=== PATIENT | female | born 1970 | race Caucasian/White ===

== ENCOUNTER 2018-02-25 11:02 | Inpatient (IN) | payer OTHER ==
--- NOTE | 2018-02-25 11:38 | EDPHY ---
General - History Smoking Status: Never smoked Time Seen by Provider: 02/25/18 11:32 Narrative: Procedure: Lumbar puncture. Indication: Headache, malaise, fever. After verbal informed consent from patient explaining the risks including infection, bleeding, and neurologic damage, a lumbar puncture was performed after the patient was prepped and draped in the usual fashion. The back was anesthetized with 1% lidocaine. Approximately 4 cc of clear fluid was obtained. Opening pressure was not obtained. There were no complications. The procedure was performed by myself. (Maria Faustin) CHIEF COMPLAINT: Headache, nausea, chills, body aches HISTORY OF PRESENT ILLNESS: Patient presents per private vehicle with complaints of headache, nausea, chills , body aches. symptoms started abruptly last night. Constant duration. Mild last night, more moderate to severe today. Headache is generalized. She feels uncontrollable shakes and chills at times but not febrile. She does have some neck pain but not stiffness. Does have some body aches and generalized malaise. No rash. No urinary complaints but no abdominal pain. No chest pain. Minimal cough. 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 They recommend that she come here further evaluation. No other associated complaints or modifying factors. REVIEW OF SYSTEMS: 10 systems were reviewed and negative with the exception of the elements mentioned in the history of present illness. PCP: Dr. Zenon Coffey SPECIALISTS: ENT PAST MEDICAL HISTORY: Sinusitis, migraines SOCIAL HISTORY: Nonsmoker. FAMILY HISTORY: Noncontributory EXAMINATION: Vitals: Triage VS reviewed General Appearance: Alert, no distress, tremulous. Ill appearing. Conversing in full sentences Head: normocephalic, atraumatic Eyes: Pupils equal and round, no conjunctival pallor or injection ENT, Mouth: Mucous membranes moist Neck: Midline trachea. Normal inspection. Supple with mild paraspinous tenderness. No nuchal rigidity. Respiratory: Lungs are clear to auscultation Cardiovascular: Regular rate and rhythm. No murmur Gastrointestinal: Abdomen is soft and nontender Back: non-tender, no bony abnormalities Neurological: A&O, nonfocal, normal gait Skin: Warm and dry, no rash Extremities: Nontender, no pedal edema Psychiatric: Mood and affect normal DIFFERENTIAL DIAGNOSES: Including but not limited to viral meningitis, bacterial meningitis, influenza, viral syndrome, sinusitis, migraine headache, dehydration MDM: 11:30 a.m. Headache, malaise, myalgias with normal vital signs other than very mild fever. She received anti-inflammatories just prior to arrival in flu test is pending. Laboratory studies pending. 12:40 p.m. Patient evaluated. Flu test negative. Laboratory studies revealed leukocytosis. She remains afebrile during my examination. I have ordered CT scan of the head due to her recent extensive sinusitis. I will discuss with attending physician. 1:[address] scan of the head is pending. She has received further medication including IV fluid, Reglan, Benadryl. I discussed case with Dr. Faustin. He will evaluate the patient as well. 1:50 p.m. Notified by radiologist Dr. Coburn. CT scan of the head was difficult to obtain due to motion artifact. She says that the initial 2 scans of the 3 performed seems to artifact and this improved. By the 3rd scan, she feels confident that the artifact has decreased and there is no evidence of subarachnoid hemorrhage. There is extensive chronic and subacute left-sided sinusitis as documented. I have notified Dr. Faustin. He will proceed with evaluation the patient and likely lumbar puncture. 4:00 p.m. Lumbar puncture is being performed by Dr. Faustin. 5:20 p.m. Lumbar puncture performed without difficulty. Fluid was clear in appearance. Please see his note for details. The fluid analysis is pending. I have re- evaluated the patient she continues to feel ill. She is ill-appearing at this time. She is also intermittently tachycardic. I do not feel she is ready for discharge home at this time. She agrees. I have ordered additional IV fluid. I discussed case with the hospitalist. She is admitted stable condition with CSF analysis pending. SUPERVISION: Patient was evaluated and examined in conjunction with my secondary supervising physician as documented. We have both examined the patient. CONSULTATION: None (Maximo Wade) - Objective Vital Signs: Initial Vital Signs Temperature (C) 100.4 F 02/25/18 11:08 Heart Rate 90 02/25/18 11:08 Respiratory Rate 18 02/25/18 11:08 Blood Pressure 116/74 02/25/18 11:08 O2 Sat (%) 96 02/25/18 11:08 O2 Delivery Mode Room Air Allergies/Adverse Reactions: Sulfa (Sulfonamide Antibiotics) Allergy (Intermediate, Verified 02/26/18 15:13) Hives Home Medications: Medication Instructions Recorded Amphet Asp and D/Amphet [Adderall 20 mg PO DAILY PRN 02/25/18 20 mg (*)] Laboratory Results: Laboratory Results 02/26/18 04:20 02/26/18 04:20 Microbiology Results: MICROBIOLOGY 02/26/18 15:01 Sinus - Swab Gram Stain - Final 02/26/18 15:01 Sinus - Swab Nasopharyngeal Culture - Preliminary 02/25/18 16:00 Cerebral Spinal Fluid Gram Stain - Final 02/25/18 16:00 Cerebral Spinal Fluid CSF Culture - Preliminary 02/25/18 22:58 Blood Blood Culture - Preliminary 02/25/18 22:58 Blood Blood Culture - Preliminary Medications Given: Acetaminophen (Tylenol) 650 mg PO Q4HRS PRN PRN Reason: Pain, Mild/Fever, Can Take PO Stop: 08/24/18 18:04 Last Admin: 02/27/18 16:43 Dose: 650 mg Hydrocodone Bitart/Acetaminophen (Seco 5/325) 1 - 2 tab PO Q4HRS PRN PRN Reason: Pain, Moderate Able to Take PO Stop: 03/07/18 18:04 Last Admin: 02/27/18 07:51 Dose: 1 tab Diazepam (Valium) 5 mg IVP Q6HRS PRN PRN Reason: Anxiety, Unable to Take PO Stop: 08/26/18 09:35 Last Admin: 02/27/18 10:02 Dose: 5 mg Sodium Chloride (Ns) 1,000 mls @ 100 mls/hr IV CONT MACY Stop: 08/24/18 18:14 Last Admin: 02/26/18 22:01 Dose: 1,000 mls Metronidazole/Sodium Chloride (Flagyl 500 Mg (Premix)) 100 mls @ 100 mls/hr IV Q8HRS MACY PRN Reason: Protocol Stop: 03/29/18 13:59 Last Admin: 02/27/18 15:36 Dose: 100 mls Ketorolac Tromethamine (Toradol) 15 mg IVP Q6HRS PRN PRN Reason: headache Stop: 03/03/18 21:59 Last Admin: 02/27/18 13:17 Dose: 15 mg Ondansetron HCl (Zofran) 4 mg IVP Q4HRS PRN PRN Reason: Nausea/Vomiting, Can't Take PO Stop: 08/24/18 18:04 Last Admin: 02/27/18 08:03 Dose: 4 mg Ondansetron HCl (Zofran Odt) 4 mg PO Q4HRS PRN PRN Reason: Nausea/Vomiting, Use 1st Stop: 08/24/18 18:04 Last Admin: 02/26/18 03:41 Dose: 4 mg Oxycodone HCl (Oxycodone Ir) 5 - 10 mg PO Q3HRS PRN PRN Reason: Pain, Severe Able to Take PO Stop: 03/07/18 18:04 Last Admin: 02/27/18 16:42 Dose: 10 mg Promethazine HCl (Phenergan) 6.25 - 12.5 mg IVP Q6HRS PRN PRN Reason: Nausea/Vomiting, Use 2nd Stop: 08/24/18 18:04 Last Admin: 02/27/18 16:42 Dose: 6.25 mg Discontinued Medications Diphenhydramine HCl (Benadryl Injection) 25 mg IVP EDNOW ONE Stop: 02/25/18 12:53 Last Admin: 02/25/18 13:00 Dose: 25 mg Fentanyl (Sublimaze) 25 mcg IVP EDNOW ONE Stop: 02/25/18 16:09 Last Admin: 02/25/18 16:09 Dose: 25 mcg Sodium Chloride (Ns) 1,000 mls @ 0 mls/hr IV EDNOW ONE; Wide Open PRN Reason: Protocol Stop: 02/25/18 12:19 Last Admin: 02/25/18 12:20 Dose: 1,000 mls Sodium Chloride (Ns) 1,000 mls @ 0 mls/hr IV ONCE ONE; Wide Open PRN Reason: Protocol Stop: 02/25/18 12:53 Last Admin: 02/25/18 13:02 Dose: 1,000 mls Sodium Chloride (Ns) 1,000 mls @ 0 mls/hr IV EDNOW ONE; Wide Open PRN Reason: Protocol Stop: 02/25/18 17:23 Last Admin: 02/25/18 17:36 Dose: 1,000 mls Ampicillin Sodium/Sulbactam (Sodium 3 gm/ Sodium Chloride) 100 mls @ 200 mls/ hr IV Q6H MACY PRN Reason: Protocol Stop: 03/28/18 15:29 Last Admin: 02/27/18 09:54 Dose: Not Given Ceftriaxone Sodium 2 gm/ (Sodium Chloride) 50 mls @ 100 mls/hr IV Q12H MACY PRN Reason: Protocol Stop: 03/29/18 09:59 Last Admin: 02/27/18 10:14 Dose: 50 mls Ketorolac Tromethamine (Toradol) 15 mg IVP ONCE ONE Stop: 02/26/18 16:34 Last Admin: 02/26/18 16:41 Dose: 15 mg Metoclopramide HCl (Reglan Injection) 10 mg IVP EDNOW ONE Stop: 02/25/18 12:53 Last Admin: 02/25/18 13:00 Dose: 10 mg Promethazine HCl (Phenergan) 25 mg IVP ONCE ONE Stop: 02/27/18 09:36 Last Admin: 02/27/18 09:42 Dose: 25 mg Departure - Departure Disposition: [facility] Acute Clinical Impression: Myalgia, Tachycardia, Left maxillary sinusitis Acute headache Qualifiers: Headache type: unspecified Intractability: not intractable Qualified Code(s): R51 - Headache Condition: Good
[2018-02-25] MEDS ORDERED: NS 1,000 ML IV ONE ×3 (12:18→17:22)
[2018-02-25 12:29] LABS: PLATELET COUNT 256 10^3/uL (150-400)
[2018-02-25] MEDS ORDERED: METOCLOPRAMIDE 10 MG/2 ML VIAL IVP ONE (12:52)
[2018-02-25] MEDS ORDERED: fentaNYL 100 MCG/2 ML INJ ONE (15:04)
[2018-02-25] MEDS ORDERED: fentaNYL 100 MCG/2 ML INJ IVP ONE (16:08)
[2018-02-25] MEDS ORDERED: HYDROmorphONE/DILAUDID 1 MG/ML INJ IVP PRN (18:05)
[2018-02-25] MEDS ORDERED: LORazepam 2 MG/ML INJ IVP PRN (18:05)
[2018-02-25] MEDS ORDERED: ALBUTEROL 3 ML DEYVIAL IH PRN (18:05)
[2018-02-25] MEDS: ONDANSETRON DISINTEGRATING 4 MG TAB PO PRN (18:23)
[2018-02-25] MEDS: ACETAMINOPHEN 325 MG TAB PO PRN (18:23)
[2018-02-25] MEDS: NS 1,000 ML IV SCH (21:35)
--- NOTE | 2018-02-25 22:21 | PDGENHP ---
History and Physical - Chief Complaint body aches/chills - History of Present Illness 47 yo F with no significant PMH presenting with c/o ROBLES, body aches and chills for the last 24 hours. 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 She has not had nausea or other GI issues, she has not had cough or increased sputum production. She notes she has had issues with her sinuses and worries that this is becoming a chronic issue and that maybe her chronic sinus infection is now eating into her facial bones. History Information - Allergies/Home Medication List Allergies/Adverse Reactions: Sulfa (Sulfonamide Antibiotics) Allergy (Verified 02/25/18 11:08) Home Medications: Amphet Asp and D/Amphet [Adderall 20 mg (*)] 20 mg PO DAILY PRN 02/25/18 [Last Taken 02/24/18] I have personally reviewed and updated: family history, medical history, social history, surgical history - Past Medical History Additional medical history: ADHD. chronic sinus infection. ear drum rupture - Surgical History Reports: no pertinent surgical hx - Family History Positive for: non-pertinent - Social History Smoking Status: Never smoked Alcohol Use: Rarely Drug Use: None Review of Systems Review of Systems: ROS: 10pt was reviewed & negative except for what was stated in HPI & below Physical Exam Physical Exam: Temp Pulse Resp BP Pulse Ox 36.9 C 96 14 107/65 94 02/25/18 19:22 02/25/18 19:22 02/25/18 19:22 02/25/18 19:22 02/25/18 19:22 Constitutional: no apparent distress, appears nourished Eyes: PERRL, anicteric sclera Ears, Nose, Mouth, Throat: moist mucous membranes, hearing normal, ears appear normal Cardiovascular: regular rate and rhythym, no murmur, rub, or gallop, No edema Respiratory: no respiratory distress, no rales or rhonchi, clear to auscultation Gastrointestinal: normoactive bowel sounds, soft, non-tender abdomen, no palpable masses Genitourinary: no bladder tenderness Skin: warm, normal color Musculoskeletal: full muscle strength, no muscle tenderness Neurologic: AAOx3 Psychiatric: interacting appropriately, not anxious, not encephalopathic Lab Data & Imaging Review 02/25/18 12:15 02/25/18 12:15 WBC 16.55 10^3/uL (3.80-9.50) H 02/25/18 12:15 RBC 4.98 10^6/uL (4.18-5.33) 02/25/18 12:15 Hgb 14.4 g/dL (12.6-16.3) 02/25/18 12:15 Hct 41.5 % (38.0-47.0) 02/25/18 12:15 MCV 83.3 fL (81.5-99.8) 02/25/18 12:15 MCH 28.9 pg (27.9-34.1) 02/25/18 12:15 MCHC 34.7 g/dL (32.4-36.7) 02/25/18 12:15 RDW 12.8 % (11.5-15.2) 02/25/18 12:15 Plt Count 256 10^3/uL (150-400) 02/25/18 12:15 MPV 9.5 fL (8.7-11.7) 02/25/18 12:15 Neut % (Auto) 88.1 % (39.3-74.2) H 02/25/18 12:15 Lymph % (Auto) 6.6 % (15.0-45.0) L 02/25/18 12:15 Taylor % (Auto) 4.7 % (4.5-13.0) 02/25/18 12:15 Eos % (Auto) 0.0 % (0.6-7.6) L 02/25/18 12:15 Baso % (Auto) 0.2 % (0.3-1.7) L 02/25/18 12:15 Nucleat RBC Rel Count 0.0 % (0.0-0.2) 02/25/18 12:15 Absolute Neuts (auto) 14.59 10^3/uL (1.70-6.50) H 02/25/18 12:15 Absolute Lymphs (auto) 1.09 10^3/uL (1.00-3.00) 02/25/18 12:15 Absolute Monos (auto) 0.77 10^3/uL (0.30-0.80) 02/25/18 12:15 Absolute Eos (auto) 0.00 10^3/uL (0.03-0.40) L 02/25/18 12:15 Absolute Basos (auto) 0.04 10^3/uL (0.02-0.10) 02/25/18 12:15 Absolute Nucleated RBC 0.00 10^3/uL (0-0.01) 02/25/18 12:15 Immature Gran % 0.4 % (0.0-1.1) 02/25/18 12:15 Immature Gran # 0.06 10^3/uL (0.00-0.10) 02/25/18 12:15 Sodium 137 mEq/L (135-145) 02/25/18 12:15 Potassium 4.1 mEq/L (3.3-5.0) 02/25/18 12:15 Chloride 102 mEq/L (97-110) 02/25/18 12:15 Carbon Dioxide 24 mEq/l (22-31) 02/25/18 12:15 Anion Gap 11 mEq/L (6-14) 02/25/18 12:15 BUN 12 mg/dL (7-23) 02/25/18 12:15 Creatinine 0.8 mg/dL (0.6-1.0) 02/25/18 12:15 Estimated GFR > 60 02/25/18 12:15 Glucose 97 mg/dL (70-100) 02/25/18 12:15 Calcium 9.8 mg/dL (8.5-10.4) 02/25/18 12:15 Total Bilirubin 0.7 mg/dL (0.1-1.4) 02/25/18 12:15 Conjugated Bilirubin 0.2 mg/dL (0.0-0.5) 02/25/18 12:15 Unconjugated Bilirubin 0.5 mg/dL (0.0-1.1) 02/25/18 12:15 AST 20 IU/L (14-46) 02/25/18 12:15 ALT 33 IU/L (9-52) 02/25/18 12:15 Alkaline Phosphatase 61 IU/L (38-126) 02/25/18 12:15 Total Protein 7.8 g/dL (6.3-8.2) 02/25/18 12:15 Albumin 4.6 g/dL (3.5-5.0) 02/25/18 12:15 Lipase 70 IU/L (23-300) 02/25/18 12:15 CSF Tube Number 1 02/25/18 16:50 CSF Appearance CLEAR (CLEAR) 02/25/18 16:50 CSF Color COLORLESS (COLORLESS) 02/25/18 16:50 CSF Supernatant COLORLESS (COLORLESS) 02/25/18 16:50 CSF WBC 0 /mm3 (0-5) 02/25/18 16:50 CSF RBC 4 /mm3 (0-0) H 02/25/18 16:50 CSF Glucose 53 mg/dL (50-75) 02/25/18 16:00 CSF Total Protein 34 mg/dL (12-60) 02/25/18 16:00 Nasal Influenza A PCR NEGATIVE FOR FLU A (NEGATIVE) 02/25/18 11:30 Nasal Influenza B PCR NEGATIVE FOR FLU B (NEGATIVE) 02/25/18 11:30 Visualized and Interpreted imaging results: Yes Interpretation: head CT: near total opacification of left maxillary sinus Assessment & Plan Assessment: Acute headache (Acute) Myalgia (Acute) Tachycardia (Acute) 47 yo F with chronic sinus issues but otherwise no significant PMH admitted with sepsis # sepsis: patient meeting sirs criteria with fever, tachycardia and leukocytosis with a presumed viral source versus related to sinus opacification noted on head CT. Patient HD stable. LP results wnl. Blood cultures and csf cultures ordered, resp pcr ordered, UA ordered. No abx given at this time with presumably viral etiology. # chronic sinus congestion: patient notes that she has undergone multiple rounds of abx for her sinus issues, on head CT she does continue to have persistent opacification of her maxillary sinus. Unclear if this is related to above and at this time will hold off on abx, will ask ID to evaluate. # ADHD: will hold adderall for now # observation status Patient new to my care. Old records reviewed and summarized as above. Care plan reviewed with ER doctor as above.
[2018-02-26] MEDS: oxyCODONE IR 5 MG TAB PO PRN ×4 (03:41→18:04)
[2018-02-26] MEDS: ONDANSETRON DISINTEGRATING 4 MG TAB PO PRN (03:41)
[2018-02-26] MEDS: ACETAMINOPHEN 325 MG TAB PO PRN ×3 (04:20→14:31)
[2018-02-26 06:02] LABS: PLATELET COUNT 207 10^3/uL (150-400)
--- NOTE | 2018-02-26 09:02 | HOSPPROG ---
Hospitalist Progress Note Assessment/Plan: 47 yo F with chronic sinus issues but otherwise no significant PMH admitted with sepsis. First encounter, chart reviewed. # sepsis -sirs criteria -Blood cx pending -resp PCR is netative -LP stable, gram stain wnl, cx pending #chronic sinus infections -suspect this is viral -CT of head shows persistent opacification of maxillary sinus -she recently was treated at for a sinus infection and was on Unasyn in January -she also did an OP w ENT -will ask ENT to see, reviewed her care with them and they are recommending IV antibiotics -ID to see *irregular density on L upper lobe -reviewed findings w Dr Castañdea -she doesn't have a previous chest x ray -get a CT of chest *ADHD -Adderall *Plan: get CT of her chest, ENT to see, will hold off on IV abx until ID weighs in. Subjective: Petra said her left nares has chronic pressure and pain, impacting her ability w school due to the discomfort. Objective: Vital Signs Temp Pulse Resp BP Pulse Ox 36.9 C 77 16 112/63 92 02/26/18 07:39 02/26/18 07:39 02/26/18 07:39 02/26/18 07:39 02/26/18 07:39 Laboratory Results 02/26/18 04:20 02/26/18 04:20 02/25/18 02/26/18 02/27/18 05:59 05:59 05:59 Intake Total 3420 Output Total 800 Balance 2620 - Physical Exam Constitutional: uncomfortable Eyes: PERRL Ears, Nose, Mouth, Throat: other (pressure and discomfort when palpating her left sinus area) Cardiovascular: regular rate and rhythym Respiratory: no respiratory distress Skin: warm, normal color Musculoskeletal: full muscle strength Neurologic: AAOx3 Psychiatric: interacting appropriately ICD10 Worksheet Patient Problems: Problems Problem Status Onset Acute headache Acute Myalgia Acute Tachycardia Acute
--- NOTE | 2018-02-26 15:06 | ASMTCMCOM ---
CM Note CM Note Notes: Spoke w/HOME CARE ASSOCIATE, pt admitted for headache. She is a student and is otherwise independent, will dc home when medically stable. CM available for any changes. DC Plan: Independent Date Signed: 02/26/2018 03:05 PM Electronically Signed By:Mercedes Wilson RN
[2018-02-26] MEDS ORDERED: AMPICILLIN/SULBACTAM 3 GM in NS 100 ML IV SCH ×2 (15:30→18:00)
[2018-02-26] MEDS: AMPICILLIN/SULBACTAM 3 GM in NS 100 ML IV SCH ×2 (15:42→20:32)
[2018-02-26] MEDS: NS 1,000 ML IV SCH ×2 (15:42→22:01)
--- NOTE | 2018-02-26 16:18 | GCON ---
INFECTIOUS DISEASE CONSULTATION. DATE OF CONSULTATION: 02/26/2018 Provider requesting consultation is Mecca Gillespie. REASON FOR CONSULTATION: Unresolving sinusitis. HISTORY OF PRESENT ILLNESS: A 47-year-old woman without significant medical history except for recen t issues relating to recurrent sinusitis. Patient's problems date back to about 6 weeks ago when she developed a left eardrum rupture followed by a hospitalization in January related to left-sided sinu sitis related to retained root from a root canal. This was subsequently removed. The patient was ho spitalized on IV Unasyn and discharged on Augmentin. In addition to this, she has been on up to 7 di fferent rounds of antibiotics but she can't remember all the names. She had been off antibiotics for a week or 2 and developed a headache, body aches and chills over the last 24 hours, myalgias and her primary care told her that she must go see the emergency room because of "a meningitis outbreak." I n the emergency room, patient was evaluated and underwent a lumbar puncture, which was normal. She a lso underwent a head CT, which was personally reviewed by me, which showed right-sided maxillary sinu sitis. 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 Her main complaint is ongoing achiness. She states that her l ast sinus culture grew Propionibacterium acnes. The patient also underwent a chest CT which was nega tive for any abnormalities. PAST MEDICAL HISTORY: Negative. PAST SURGICAL HISTORY: Root canals and extraction of root as per HPI. She also had a left toe surge ry remotely. ALLERGIES: Sulfa causes hives and facial swelling, this happened in 2011. FAMILY HISTORY: Reviewed and noncontributory. SOCIAL HISTORY: Rare alcohol. No smoking. She is a nursing admin. She is . She lives in [place]. REVIEW OF SYSTEMS: A complete 10-point review of systems was performed and is negative except as men tioned in the HPI. PHYSICAL EXAMINATION: VITAL SIGNS: T-max is 38, T current 36.7, BP 101/60, HR 82, RR 16, saturation 94% on room air. GENERAL: This is a nontoxic appearing woman in no acute distress, who is conversatio nal. She has mild distress due to headache. HEENT: Her pupils are reactive bilaterally. Extraocul ar muscles are intact. Her right eye was mildly more prominent than her left eye. Her cranial nerve s were grossly intact. Her dentition was good. No obvious dental caries. Patient had tenderness ove r left maxillary sinus. NECK: Supple. No lymphadenopathy. CARDIOVASCULAR: Regular rate, no murmu rs. CHEST: Clear to auscultation bilaterally. ABDOMEN: Soft, nontender. EXTREMITIES: No clubbin g, cyanosis, or edema. SKIN: No rashes. No peripheral stigmata of endocarditis. NEUROLOGIC: She wa s moving all 4 extremities equally. LABORATORY: White count initially 16.5, today 8.5, without antibiotic intervention, hematocrit 35, p latelets of 207, 73% neutrophils. Creatinine 0.7. CSF tube 4 had 0 WBCs, 0 RBCs, 53 glucose, 34 pro tein. Respiratory PCR was performed and is negative. Blood cultures were collected and are pending. ASSESSMENT AND PLAN: This is a 47-year-old woman with persistent left maxillary sinusitis, with mult iple rounds of antibiotics. 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 The patient needs to likely improve drainage of her sinus. Could also con interface designer deeper bony involvement, but at this time, would re-evaluate with cultures and potentially long er antibiotic therapy. Would empirically initiate IV Unasyn and follow up on cultures and direct ant ibiotic therapy. Would also obtain records from outside hospital. Thank you for this consultation. Care was coordinated with hospitalist and ENT. /[id number]/MODL
[2018-02-26] MEDS: ONDANSETRON 4 MG/2 ML VIAL IVP PRN (16:25)
[2018-02-26] MEDS ORDERED: KETOROLAC 15 MG/1 ML SDV IVP ONE (16:33)
--- NOTE | 2018-02-26 19:55 | GCON ---
ENT CONSULTATION DATE OF CONSULTATION: 02/26/2018 REASON FOR CONSULTATION: Sinusitis. HISTORY OF PRESENT ILLNESS: This 47-year-old female presented to the emergency department on 02/25 complaining of headache, nausea, chills, body aches. It started had started abruptly the previous night. She describes having a chronic sinus headache since the beginning of November. The pain is localized to her left cheek. She had been prescribed numerous rounds of antibiotics throughout November and December. She saw an floor layer apprentice in December who performed apicoectomy on an upper left tooth. One week later she again was having headaches, facial pressure and pain. She was then admitted at [facility] where they performed a nasal endoscopy with culture that grew Cutibacterium acnes and she was placed on Unasyn IV for 24 hours. In followup with an ENT provider, they had informed her her infection had cleared, however, her symptoms returned and prompted her visit to the ED yesterday. REVIEW OF SYSTEMS: 10 systems reviewed, negative with the exception of the above-mentioned History of Present Illness. PAST MEDICAL HISTORY: Notable for migraines. SOCIAL HISTORY: Nonsmoker. FAMILY HISTORY: Noncontributory. IMAGING: Head CT without contrast performed on 02/25/2018. Images were reviewed personally by myself and with Dr. De Guzman. There is significant sinus disease in the left maxillary sinus without definitive invasion into the inferior orbital floor. No retroorbital stranding or inflammation. PHYSICAL EXAMINATION: VITAL SIGNS: Blood pressure 101/60, heart rate 82, temperature 36.7 degrees Celsius, oxygen 94% on room air. GENERAL APPEARANCE: She was examined at the bedside. She is alert, slightly photophobic but in no distress. HEAD: Normocephalic, atraumatic. EYES: Pupils equal and round. EOMs intact. MOUTH: Mucous membranes are moist. Tonsils 2+ without exudate. NECK: Supple. RESPIRATORY: Patient is breathing well. SKIN: Warm and dry, no rashes seen. PROCEDURE: Flexible fiberoptic nasal endoscopy was performed at the bedside. The scope was passed in the side of the nose. There was a stream of purulent drainage emanating from the left osteomeatal complex. The nasopharynx was without masses. No polyps were noted. Culture was taken of the left maxillary sinus drainage. IMPRESSION: A 47-year-old female suffering from a left maxillary sinusitis. It may be odontogenic in origin. I have taken a culture of the purulent drainage from the left maxillary sinus and this will be sent to the lab. Antibiotics will be adjusted. Patient is also being followed by Infectious Disease and we will defer to Infectious Disease for their recommendations for antibiotics. We will plan to see the patient Outpatient to discuss further management. The case and plan were reviewed with Dr. De Guzman today. /[id number]/MODL MTDD
[2018-02-26] MEDS: HYDROCODONE/APAP 5/325 TAB PO PRN (20:27)
[2018-02-26] MEDS: KETOROLAC 15 MG/1 ML SDV IVP PRN (22:27)
[2018-02-27] MEDS: HYDROCODONE/APAP 5/325 TAB PO PRN ×2 (00:27→07:51)
[2018-02-27] MEDS: KETOROLAC 15 MG/1 ML SDV IVP PRN ×3 (04:33→21:23)
[2018-02-27] MEDS: AMPICILLIN/SULBACTAM 3 GM in NS 100 ML IV SCH ×2 (04:34→09:54)
[2018-02-27] MEDS: ONDANSETRON 4 MG/2 ML VIAL IVP PRN ×2 (08:03→21:23)
[2018-02-27] MEDS ORDERED: PROMETHAZINE HCL 25 MG/ML INJ IVP ONE (09:35)
[2018-02-27] MEDS ORDERED: DIAZEPAM 5 MG/ML 1 ML SYR IVP PRN (09:36)
--- NOTE | 2018-02-27 09:40 | PCMIDPN ---
Assessment/Plan: # Chronic sinusitis w severe ROBLES, diffuse a bit more prominent on L: concern for septic sinus venous thrombosis. LP normal --MRI brain with and w/o contrast and MR venogram --change antibiotics to regimen that will penetrate CSF: high dose ceftriaxone + metronidazole --trying to get records CT scan report from 01/26/18 acute on chronic sinusitis involving L maxillary sinus arising from the L first molar tooth which demonstrated a region of cortical breach as well and periapical lucency The L orbital floor appears mildly eroded and is bowed inferiorly w mild inflammatory changes ; L inferior rectus muscle mildly enlarged compared to R; mild inflammatory changes in the inferior L extracoronal fat, concerning for intra orbital extension of of infection meds Unasyn 3gm IV q6h #1 Microbiology 02/26/18 15:01 Sinus swab: 4+ PMNs no org; cx pending 02/25/18 11:30 Respiratory Panel (PCR) - No Organism Detected 02/25/18 22:58 Blood Cx (2) NGTD 02/25/18 16:00 Cerebral Spinal Fluid Cx: NGTD Subjective: severe ROBLES light sensitivity feels like vision is abnormal Objective: Vital Signs Temp Pulse Resp BP Pulse Ox 36.7 C 73 12 114/64 91 L 02/27/18 07:28 02/27/18 07:28 02/27/18 07:28 02/27/18 07:28 02/27/18 07:28 Microbiology 02/26/18 15:01 Gram Stain - Final Sinus - Swab Laboratory Results 02/26/18 04:20 02/26/18 04:20 02/26/18 02/27/18 02/28/18 05:59 05:59 05:59 Intake Total 3420 500 Output Total 800 600 Balance 2620 -100 - Physical Exam General Appearance: alert, apparent distress EENT: normal ENT inspection, No thrush Respiratory: lungs clear, No accessory muscle use Cardiac/Chest: regular rate, rhythm Extremities: No pedal edema Abdomen: non-tender, soft Skin: diaphoresis, No rash Neuro/Psych: alert, normal mood/affect, oriented x 3, No abnormal CN - Time Spent With Patient Time Spent with Patient: greater than 35 minutes Time Spent with Patient: Greater than 35 minutes spent on this patients care, greater than 50% of time spent counseling, educating, and coordinating care regarding the above mentioned plan. ICD10 Worksheet Patient Problems: Problems Problem Status Onset Acute headache Acute Myalgia Acute Tachycardia Acute
[2018-02-27] MEDS ORDERED: GADOBUTROL 10 ML VIAL IVP ONE ×2 (12:18→12:38)
--- NOTE | 2018-02-27 12:26 | PDMN ---
Medical Necessity Medical necessity: Change to inpt as of 02/26/18 @ [id number]. Pt meets inpt criteria per MD order and Systemic or Infectious Condition GRG. 47 y/o w/recent chronic sinus issues having undergone multiple rounds of abx presented w/severe headaches, body aches, and chills, admitted w/sepsis and acute maxillary sinusitis, head CT showed persistent opacification of maxillary sinus. ENT and ID consults, IV ABX's adjusted to regimen to penetrate CSF, IV Toradol and PO meds for pain management. Est LOS>2MN for ongoing eval/management of above.
[2018-02-27] MEDS: oxyCODONE IR 5 MG TAB PO PRN ×2 (13:18→16:42)
--- NOTE | 2018-02-27 14:15 | ASMTCMCOM ---
CM Note CM Note Notes: Spoke w/RN, pt with headache d/t sever sinusitis. On IV abx, no therapies ordered, anticipate she will dc home w/support of when medically stable. CM available for any changes. DC Plan: Independent Date Signed: 02/27/2018 02:11 PM Electronically Signed By:Mercedes Wilson RN
--- NOTE | 2018-02-27 14:21 | HOSPPROG ---
Hospitalist Progress Note Assessment/Plan: 47y female with c/o headache. First encounter, chart reviewed. D/W Dr Silver at bedside. # sepsis -sirs criteria -Blood cx NGTD -resp PCR is negative -LP stable, gram stain wnl, cx ngtd #chronic sinus infections -CT of head shows persistent opacification of maxillary sinus -she recently was treated at for a sinus infection and was on Unasyn in January -she also did an OP w ENT -ID seeing -MRI brain and MR venogram *irregular density on L upper lobe -she doesn't have a previous chest x ray -CT of chest shows irregularity *ADHD -Adderall *Plan: -change antibiotics to regimen that will penetrate CSF: high dose ceftriaxone + metronidazole -MR -MRI Subjective: Severe headache. Tearful. Some nausea. Objective: Vital Signs Temp Pulse Resp BP Pulse Ox 37.1 C 75 12 113/63 90 L 02/27/18 12:00 02/27/18 12:00 02/27/18 12:00 02/27/18 12:00 02/27/18 12:00 02/26/18 02/27/18 02/28/18 05:59 05:59 05:59 Intake Total 500 Output Total 600 Balance -100 - Physical Exam Constitutional: appears nourished, chronically ill appearing, uncomfortable Eyes: PERRL, anicteric sclera, EOMI Ears, Nose, Mouth, Throat: moist mucous membranes, hearing normal, ears appear normal Cardiovascular: regular rate and rhythym, No JVD, No edema Respiratory: no respiratory distress, no rales or rhonchi, reduced air movement Gastrointestinal: normoactive bowel sounds, No tenderness, No ascites Skin: warm, normal color, No mottled Musculoskeletal: normal joint ROM, no joint effusions, generalized weakness Neurologic: AAOx3 Psychiatric: not anxious, thought process linear, encephalopathic ICD10 Worksheet Patient Problems: Problems Problem Status Onset Acute headache Acute Myalgia Acute Tachycardia Acute Left maxillary sinusitis Acute
[2018-02-27] MEDS: PROMETHAZINE HCL 25 MG/ML INJ IVP PRN ×2 (16:42→17:14)
[2018-02-27] MEDS: ACETAMINOPHEN 325 MG TAB PO PRN (16:43)
[2018-02-28] MEDS: oxyCODONE IR 5 MG TAB PO PRN ×3 (01:14→21:32)
[2018-02-28] MEDS: ACETAMINOPHEN 325 MG TAB PO PRN ×5 (01:23→20:23)
[2018-02-28] MEDS ORDERED: BISACODYL 10 MG SUPP PR PRN (02:40)
[2018-02-28] MEDS ORDERED: LACTULOSE 20 GM/30 ML UDCUP PO PRN (02:40)
[2018-02-28] MEDS ORDERED: POLYETHYLENE GLYCOL 3350 17 GM PKT PO PRN (02:40)
[2018-02-28] MEDS ORDERED: MAGNESIUM HYDROXIDE 30 ML UDCUP PO PRN (02:40)
[2018-02-28] MEDS: KETOROLAC 15 MG/1 ML SDV IVP PRN ×2 (03:28→09:30)
[2018-02-28] MEDS: SENNOSIDES/DOCUSATE SODIUM TAB PO SCH ×2 (07:14→21:31)
--- NOTE | 2018-02-28 07:49 | HOSPPROG ---
Hospitalist Progress Note Assessment/Plan: 47y female with recent PMH of sinusitis and ear drum rupture 6 weeks ago. Hospitalized in January for recurrent sinusitis 2/2 retained root from root canal. Also has been on multiple courses of abs since initial diagnosis. P/w headache, chills, myalgias, hypotension. First encounter, chart reviewed. MRI without osteo and MR without sinus thrombosis. ID and ENT consulting with possible need for drainage. Pt seen with Dr. Silver today. # sepsis -sirs criteria -Blood cx NGTD -resp PCR is negative -LP stable, gram stain wnl, cx ngtd #chronic sinus infections -CT of head shows persistent opacification of maxillary sinus -ID seeing/ will continue on IV abx and track progress *irregular density on L upper lobe -she doesn't have a previous chest x ray -CT of chest shows irregularity - will need follow up CT or CXR after discharge *ADHD -Adderall *Plan: -changed antibiotics yesterday to regimen that will penetrate CSF: high dose ceftriaxone + metronidazole Subjective: Feeling improved. ROBLES at 06/28 today. No f/c. Objective: Vital Signs Temp Pulse Resp BP Pulse Ox 98.3 F 67 16 105/65 96 02/28/18 03:40 02/28/18 03:40 02/28/18 03:40 02/28/18 03:40 02/28/18 03:40 02/27/18 02/28/18 03/01/18 05:59 05:59 05:59 Intake Total 500 1906 Output Total 600 600 Balance -100 1306 - Time Spent With Patient Time Spent with Patient: greater than 25 minutes Time Spent with Patient: Greater than 25 minutes spent on this patients care, greater than 50% of time spent counseling, educating, and coordinating care regarding the above mentioned plan. - Physical Exam Constitutional: no apparent distress, appears nourished Eyes: PERRL, No icteric sclera, No scleral injection Ears, Nose, Mouth, Throat: moist mucous membranes, hearing normal Cardiovascular: regular rate and rhythym, No JVD Respiratory: no respiratory distress Gastrointestinal: normoactive bowel sounds, soft, non-tender abdomen Skin: warm, normal color Neurologic: AAOx3, No facial droop Psychiatric: interacting appropriately, not anxious ICD10 Worksheet Patient Problems: Problems Problem Status Onset Acute headache Acute Left maxillary sinusitis Acute Myalgia Acute Tachycardia Acute
--- NOTE | 2018-02-28 10:14 | PCMIDPN ---
Assessment/Plan: # Acute on Chronic sinusitis w severe ROBLES - much better today. Cx unrevealing for a specific pathogen. continue treatment for typical expected pathogens : streptococcus, H flu. Reviewed MRI no bone involvement, no sinus venous thrombosis, no abscess --continue ceftriaxone + metronidazole --tentative plan DC tomorrow on 3rd gen cephalosporin PO. Not obligated to IV as no bone involvement meds ceftriaxone 2gm IV daily #2 (abx #3) Microbiology 02/26/18 15:01 Sinus swab: 4+ PMNs no org; cx pending 02/25/18 11:30 Respiratory Panel (PCR) - No Organism Detected 02/25/18 22:58 Blood Cx (2) NGTD 02/25/18 16:00 Cerebral Spinal Fluid Cx: NGTD case reviewed w hospitalist Subjective: feeling much better today much less light sensitivity denies visual changes Objective: Vital Signs Temp Pulse Resp BP Pulse Ox 36.8 C 67 16 105/60 95 02/28/18 07:46 02/28/18 07:46 02/28/18 07:46 02/28/18 07:46 02/28/18 07:46 02/27/18 02/28/18 03/01/18 05:59 05:59 05:59 Intake Total 500 1906 Output Total 600 600 Balance -100 1306 - Physical Exam General Appearance: alert, no apparent distress EENT: pale conjunctiva, No scleral icterus, No thrush Respiratory: crackles (R base), No accessory muscle use Neck: supple Cardiac/Chest: regular rate, rhythm, No systolic murmur Extremities: No pedal edema Abdomen: non-tender, soft Skin: warm/dry, No diaphoresis, No rash, No embolic lesions Neuro/Psych: alert, normal mood/affect, oriented x 3, No abnormal CN, No facial droop, No motor weakness - Time Spent With Patient Time Spent with Patient: greater than 35 minutes Time Spent with Patient: Greater than 35 minutes spent on this patients care, greater than 50% of time spent counseling, educating, and coordinating care regarding the above mentioned plan. ICD10 Worksheet Patient Problems: Problems Problem Status Onset Acute headache Acute Left maxillary sinusitis Acute Myalgia Acute Tachycardia Acute
[2018-02-28] MEDS: IBUPROFEN 600 MG TAB PO PRN ×2 (11:16→17:36)
[2018-02-28] MEDS: ONDANSETRON DISINTEGRATING 4 MG TAB PO PRN ×3 (12:23→20:23)
--- NOTE | 2018-02-28 14:32 | ASMTCMCOM ---
CM Note CM Note Notes: Per infectious disease note, there is a tentative plan for d/c tomorrow, with the pt being d/sandra on PO medication. D/C Plan: Anticipate independent. Date Signed: 02/28/2018 02:31 PM Electronically Signed By:Gely Ryan
[2018-03-01] MEDS: IBUPROFEN 600 MG TAB PO PRN ×3 (00:44→20:25)
[2018-03-01] MEDS: ONDANSETRON DISINTEGRATING 4 MG TAB PO PRN (00:46)
[2018-03-01] MEDS: ACETAMINOPHEN 325 MG TAB PO PRN (02:04)
[2018-03-01] MEDS: oxyCODONE IR 5 MG TAB PO PRN ×3 (02:06→12:31)
[2018-03-01] MEDS: SENNOSIDES/DOCUSATE SODIUM TAB PO SCH ×2 (08:16→21:57)
[2018-03-01] MEDS: ONDANSETRON 4 MG/2 ML VIAL IVP PRN ×3 (08:25→20:26)
[2018-03-01] MEDS ORDERED: ADDERALL 20 MG TAB PO PRN (10:52)
--- NOTE | 2018-03-01 11:46 | PCMIDPN ---
Assessment/Plan: # Acute on Chronic sinusitis w severe ROBLES -Nasal turbinate cx neg. Continue treatment for typical expected pathogens : streptococcus, H flu.MRI no bone involvement, no sinus venous thrombosis, no abscess. Severe ROBLES today but I don' t think it is attributable to sinus dz. --continue ceftriaxone + metronidazole IV - leave on IV today due to severe nausea --tentative plan DC tomorrow on 3rd gen cephalosporin PO. Rec cefpodoxime 200mg PO BID and flagyl 500mg PO BID x 18 more day (for a total of 3 week course ) --blood patch today --if better tomorrow, do not have to wait for ID to round, recs above --ENT f/u as outpatient, ID not needed --If ROBLES not improved tomorrow, will need re-eval by ENT meds ceftriaxone 2gm IV daily #3 (abx #4) flagyl 500mg IVq8 #2 Microbiology 02/26/18 15:01 Sinus swab: 4+ PMNs no org; cx neg 02/25/18 11:30 Respiratory Panel (PCR) - No Organism Detected 02/25/18 22:58 Blood Cx (2) NGTD 02/25/18 16:00 Cerebral Spinal Fluid Cx: Neg case reviewed w hospitalist Subjective: severe diffuse positional ROBLES associated w nausea L facial pain a bit better but difficult to tell with severe diffuse ROBLES Objective: Vital Signs Temp Pulse Resp BP Pulse Ox 36.8 C 79 16 131/83 H 87 L 03/01/18 07:46 03/01/18 07:46 03/01/18 07:46 03/01/18 07:46 03/01/18 07:46 02/28/18 03/01/18 03/02/18 05:59 05:59 05:59 Intake Total 1906 1700 Output Total 600 1900 Balance 1306 -200 - Physical Exam General Appearance: alert, no apparent distress EENT: pale conjunctiva, dry mucous membranes, No thrush Respiratory: lungs clear, No accessory muscle use Neck: supple Cardiac/Chest: regular rate, rhythm Skin: warm/dry, No diaphoresis, No rash Neuro/Psych: alert, normal mood/affect, oriented x 3, No abnormal CN - Time Spent With Patient Time Spent with Patient: greater than 35 minutes Time Spent with Patient: Greater than 35 minutes spent on this patients care, greater than 50% of time spent counseling, educating, and coordinating care regarding the above mentioned plan. ICD10 Worksheet Patient Problems: Problems Problem Status Onset Acute headache Acute Left maxillary sinusitis Acute Myalgia Acute Tachycardia Acute
--- NOTE | 2018-03-01 13:04 | HOSPPROG ---
Hospitalist Progress Note Assessment/Plan: 47y female with recent PMH of sinusitis and ear drum rupture 6 weeks ago. Hospitalized in January for recurrent sinusitis 2/2 retained root from root canal. Also has been on multiple courses of abs since initial diagnosis. P/w headache, chills, myalgias, hypotension. MRI without osteo and MR without sinus thrombosis. ID and ENT consulting with possible need for drainage. Pt reviewed with Dr. Silver today. # sepsis -sirs criteria on initial presentation now resolved -Blood cx NGTD -resp PCR is negative -LP stable, gram stain wnl, cx ngtd #chronic sinus infections -CT of head shows persistent opacification of maxillary sinus -ID seeing/ will continue on IV abx while inpatient and can change to PO on discharge #headache -concerning that is related to spinal headache related to LP -Dr. Silver hsas ordered a blood patch *irregular density on L upper lobe -she doesn't have a previous chest x ray -CT of chest shows irregularity - will need follow up CT or CXR after discharge *ADHD -Adderall *Plan: -changed antibiotics yesterday to regimen that will penetrate CSF: high dose ceftriaxone + metronidazole Subjective: Has ROBLES worsened with straining for BM. No f/c. Objective: Vital Signs Temp Pulse Resp BP Pulse Ox 98.0 F 75 16 120/85 H 90 L 03/01/18 11:55 03/01/18 11:55 03/01/18 11:55 03/01/18 11:55 03/01/18 11:55 02/28/18 03/01/18 03/02/18 05:59 05:59 05:59 Intake Total 1906 1700 Output Total 600 1900 Balance 1306 -200 - Physical Exam Constitutional: no apparent distress, appears nourished Eyes: PERRL Ears, Nose, Mouth, Throat: moist mucous membranes Cardiovascular: regular rate and rhythym, no murmur, rub, or gallop Respiratory: no respiratory distress, no rales or rhonchi ICD10 Worksheet Patient Problems: Problems Problem Status Onset Acute headache Acute Myalgia Acute Tachycardia Acute Left maxillary sinusitis Acute
[2018-03-01] MEDS ORDERED: LIDOCAINE 1% 300 MG/30 ML SDV ONE (13:51)
[2018-03-01] MEDS ORDERED: IOPAMIDOL (ISOVUE-M 300) 15 ML VIAL ONE (13:51)
[2018-03-01] MEDS: PROMETHAZINE HCL 25 MG/ML INJ IVP PRN (14:55)
[2018-03-02 07:27] VITALS: BP 121/76
[2018-03-02] MEDS: SENNOSIDES/DOCUSATE SODIUM TAB PO SCH (07:58)
--- NOTE | 2018-03-02 11:24 | HOSPPROG ---
Hospitalist Progress Note Assessment/Plan: 47y female with recent PMH of sinusitis and ear drum rupture 6 weeks ago. Hospitalized in January for recurrent sinusitis 2/2 retained root from root canal. Also has been on multiple courses of abs since initial diagnosis. P/w headache, chills, myalgias, hypotension. # sepsis -sirs criteria on initial presentation now resolved -Blood cx NGTD -resp PCR is negative -LP stable, gram stain wnl, cx ngtd #chronic sinus infections -CT of head shows persistent opacification of maxillary sinus #headache/ secondary to CSF leak -resolved w blood patch *irregular density on L upper lobe -she doesn't have a previous chest x ray -CT of chest shows likley r/t superimposition of the pulmonary vasculature *ADHD -Adderall *Plan: dc home w close f/u w Dr De Guzman Subjective: Petra is feeling fine Objective: Vital Signs Temp Pulse Resp BP Pulse Ox 36.4 C 75 16 121/76 H 90 L 03/02/18 07:25 03/02/18 07:25 03/02/18 07:25 03/02/18 07:25 03/02/18 07:25 03/01/18 03/02/18 03/03/18 05:59 05:59 05:59 Intake Total 1700 750 Output Total 4946 641 6725 Balance - - Physical Exam Constitutional: no apparent distress, appears nourished, not in pain Eyes: PERRL Ears, Nose, Mouth, Throat: hearing normal Respiratory: no respiratory distress Skin: warm Musculoskeletal: full muscle strength Neurologic: AAOx3 ICD10 Worksheet Patient Problems: Problems Problem Status Onset Acute headache Acute Left maxillary sinusitis Acute Myalgia Acute Tachycardia Acute
--- NOTE | 2018-03-02 13:04 | GDS ---
DISCHARGE DIAGNOSES: 1. Sepsis. 2. Chronic sinus infections. 3. Headache, secondary to a cerebrospinal fluid leak. 4. Irregular density on left upper lobe noted on chest x-ray. 5. Attention deficit hyperactivity disorder. CONSULTATION: 1. Dr. Pari Silver. 2. Diann Rider, physician research assistant member with [facility]. 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 Her problems started approximately 6 weeks ago when she developed a left ear drum rupture. This was followed up with hospitalization in January related to left-sided sinusitis related to retai mariusz root from a root canal. This was subsequently removed. She was treated IV Unasyn and discharged on Augmentin. She has been on 7 different rounds of antibiotics and cannot remember all their names . In the emergency room, she had a lumbar puncture, which was normal. She also underwent a head CT, which showed sinusitis. She was seen and evaluated by the infectious disease doctors. She was shoaib cecily with ceftriaxone and Flagyl. She improved nicely during her stay. In addition, she had persistent headaches. She had a blood patch performed, which resolved her sympt oms. The plan for her is to be discharged on antibiotics for the next 18 days. The recommendation is for her to get further workup in regard to her sinus infections and followup surgery. I have given her a name of an ENT physician to follow up with. HOSPITAL COURSE: 1. Sepsis. This resolved. Her blood cultures have no growth to date. Her lumbar puncture was stab le. Her Gram stain was at normal limits and her culture had no growth. 2. Chronic sinus infections. Her CT of her head shows opacification of the maxillary sinus. 3. Headache. This was secondary to a cerebrospinal fluid leak, resolved with a blood patch. 4. Irregular density left upper lobe. This showed on the chest x-ray. She had a CT of her chest th at shows likely related to superimposition of her pulmonary vasculature. Recommending that she get f ollowup x-rays to make sure this remains stable. 5. Attention deficit hyperactivity disorder. Adderall. DISCHARGE CONDITION: Stable. Blood pressure is 121/76, heart rate is 75, respiratory rate is 16, O2 sats on room air 90%, temperature is 36.4 Celsius. MEDICATIONS AT DISCHARGE: Please see the EMR. DISCHARGE INSTRUCTIONS: 1. No alcohol while on the Flagyl. 2. Take antibiotics as prescribed. 3. Follow up with Dr. De Guzman with [facility]. 4. It is okay for her to go back to school. She does not have anything in contagious. 5. To get a copy of her CT scan to get followup in the future for comparison. Greater than 30 minutes discharging and coordinating her care. /[id number]/[id number]
== END 2018-03-02 13:25 | disposition home or self-care (01) | DRG 872 ==
LOC: F3E 18:00 → OBSVTOIN 02-26 16:32
PROVIDERS: ADMIT Internal Medicine; ATTEND Internal Medicine
PROC: 009U3ZX Drainage of Spinal Canal, Percutaneous Approach, Diagnostic (ICD-10-PCS; principal; 2018-02-25)
PROC: 09BR8ZX Excision of Left Maxillary Sinus, Via Natural or Artificial Opening Endoscopic, Diagnostic (ICD-10-PCS; 2018-02-26)
PROC: 3E0S3GC Introduction of Other Therapeutic Substance into Epidural Space, Percutaneous Approach (ICD-10-PCS; 2018-03-01)
DX: A41.9 Sepsis, unspecified organism (principal); J32.9 Chronic sinusitis, unspecified; G97.1 Other reaction to spinal and lumbar puncture; E86.9 Volume depletion, unspecified; R91.1 Solitary pulmonary nodule; F90.9 Attention-deficit hyperactivity disorder, unspecified type
CPT/HCPCS: 96374; A9585; G0378; J0295; J0696; J1200; J1885; J2405; J2550; J2765; J3010; J3360; Q9967